=== PATIENT | male | born 1965 | race Caucasian/White ===

== ENCOUNTER → 2024-11-01 | Outpatient (CLI) | payer OTHER ==
[2024-11-01 12:21] LABS: BASO # 0.02 K/mm3 (0.02-0.10); EOS # 0.29 K/mm3 (0.04-0.40); EOS % 5.6 % (0.0-4.0); HEMATOCRIT 43.5 % (42.0-52.0); HEMOGLOBIN 14.5 g/dL (13.5-18.0); LYMPH# 1.76 K/mm3 (1.50-4.00); MEAN CELL VOLUME 95 fl (78-100); MEAN CORPUSCULAR HEMOGLOBIN 32 pg (27-31); MEAN CORPUSCULAR HGB CONC 33 g/dL (33-37); MEAN PLATELET VOLUME 9.4 fl (7.4-10.4); MONO # 0.51 K/mm3 (0.20-0.80); NEU # 2.64 K/mm3 (1.40-6.50); PLATELET COUNT 245 K/mm3 (130-400); RED BLOOD COUNT 4.56 M/mm3 (4.20-5.60); RED CELL DISTRIBUTION WIDTH 12.3 % (11.5-14.5); WHITE BLOOD COUNT 5.2 K/mm3 (4.8-10.8)
[2024-11-01 12:29] LABS: ALBUMIN 4.3 g/dL (3.5-5.0)
[2024-11-01 12:30] LABS: CALCIUM 9.3 mg/dL (8.3-10.5)
[2024-11-01 12:31] LABS: TOTAL PROTEIN 7.8 g/dL (6.4-8.3)
[2024-11-01 12:33] LABS: TOTAL BILIRUBIN 0.6 mg/dL (0.2-1.2)
[2024-11-01 12:38] LABS: MAGNESIUM 1.8 mg/dL (1.60-2.60)
[2024-11-01 23:02] LABS: FOLATE (FOLIC ACID) 13.8 ng/mL (2.0-20.0)
== END ==
LOC: LAB 11:54
PROVIDERS: Internal Medicine
DX: Z12.5 Encounter for screening for malignant neoplasm of prostate (principal); E78.2 Mixed hyperlipidemia; I10 Essential (primary) hypertension; K90.9 Intestinal malabsorption, unspecified; R73.9 Hyperglycemia, unspecified